=== PATIENT | female | born 1990 | race Caucasian/White ===

== ENCOUNTER 2016-10-08 14:54 | Emergency (ER) | payer OTHER, MEDICAID ==
[~2016-10-08] VITALS: Ht 165.1 cm; Wt 75.0 kg
[2016-10-08] MEDS ORDERED: ONDANSETRON ODT 8 MG PO ONE (15:30)
[2016-10-08] MEDS ORDERED: KETOROLAC 30 MG/1 ML IM ONE (15:30)
[2016-10-08 15:39] LABS: HEMOGLOBIN 13.4 g/dL (11.7-16.4)
[2016-10-08] MEDS ORDERED: KETOROLAC 30 MG/1 ML ONE (15:43)
[2016-10-08] MEDS ORDERED: ONDANSETRON ODT 4 MG ONE (15:44)
[2016-10-08 15:49] LABS: BLOOD UREA NITROGEN 7 mg/dL (7-18)
[2016-10-08] MEDS ORDERED: ONDANSETRON ODT 8 MG ONE (16:17)
[2016-10-08 16:57] LABS: HCG UR OBC PASS
[2016-10-08 17:20] VITALS: BP 118/72
== END 2016-10-08 17:56 | disposition home or self-care (01) ==
LOC: ED 15:30
DX: S00.12XA Contusion of left eyelid and periocular area, initial encounter (principal); R55 Syncope and collapse; R11.2 Nausea with vomiting, unspecified; W19.XXXA Unspecified fall, initial encounter; Y93.89 Activity, other specified; Y92.89 Other specified places as the place of occurrence of the external cause; Y99.8 Other external cause status; F19.10 Other psychoactive substance abuse, uncomplicated
CPT/HCPCS: 36415; 70150; 71020; 80048; 81003; 81025; 82040; 83690; 85025; 96372; 99285; J1885; Q0162

== ENCOUNTER 2016-12-17 11:04 | Emergency (ER) | payer MEDICAID, OTHER ==
[~2016-12-17] VITALS: Ht 165.1 cm; Wt 52.0 kg
[2016-12-17 11:18] VITALS: BP 140/80
[2016-12-17] MEDS ORDERED: SODIUM CHLORIDE 0.9% 1,000ML IVBOLUS ONE (12:00)
[2016-12-17] MEDS ORDERED: SODIUM CHLORIDE FLUSH 10ML SYR IVF ONE (12:00)
[2016-12-17] MEDS ORDERED: KETOROLAC 30 MG/1 ML IVPush ONE (12:00)
[2016-12-17 12:40] LABS: ASPARTATE AMINO TRANSFERASE 23 U/L (15-37); BLOOD UREA NITROGEN 10 mg/dL (7-18)
[2016-12-17 12:46] LABS: IS PT STATUS REG ER OR PRE ER? YES
[2016-12-17] MEDS ORDERED: KETOROLAC 30 MG/1 ML IM ONE (14:00)
[2016-12-17 14:51] LABS: HCG UR OBC PASS
== END 2016-12-17 16:00 | disposition left against medical advice (07) ==
LOC: ED 11:46
DX: M25.512 Pain in left shoulder (principal); R61 Generalized hyperhidrosis; R07.89 Other chest pain; M79.1 Myalgia
CPT/HCPCS: 36415; 71010; 80053; 81001; 81025; 83605; 83880; 84484; 85025; 85610; 87077; 87086; 87186; 93005; 99285